=== PATIENT | female | born 1975 | race Caucasian/White ===

== ENCOUNTER → 2021-09-11 | Outpatient (REF) ==
--- NOTE | 2021-09-11 13:19 | Diagnostic Imaging Report ---
EXAMINATION: PA and lateral chest at 1314 hours. INDICATION: Positive TB skin test. COMPARISON: None. FINDINGS: The heart size is within normal limits. The lungs are clear. There is no evidence for failure, pneumonia or for a pleural effusion. Furthermore, there is no abnormal density involving the lung apices to suggest tuberculosis. The mediastinum is not widened. The osseous structures are intact. IMPRESSION: There is no evidence for an acute cardiopulmonary abnormality. In particular, there is no sign of active tuberculosis. Dictated by: Dictated on workstation # [id number]
== END | disposition home or self-care (01) ==
LOC: OCC 13:01
PROVIDERS: ATTEND Nurse Practitioner Family
DX: Z01.818 Encounter for other preprocedural examination (principal)
CPT/HCPCS: 71046